=== PATIENT | female | born 1955 ===

== ENCOUNTER 2018-06-30 00:53 | Observation (INO) ==
--- NOTE | 2018-06-30 01:10 | Emergency Department Note ---
Disposition Clinical Impression: Urinary tract infection, Change in mental status Disposition: Admitted As Inpatient Condition: Good Time of Disposition: 02:57 General Adult HPI - General Chief complaint: ED General Medical Stated complaint: Lethargic onset this evening Time Seen by Provider: 06/30/18 00:54 Source: patient Mode of arrival: EMS Limitations: altered mental status Nursing Notes Reviewed: Yes Vital Signs Reviewed: Yes - History of Present Illness HPI Narrative: Patient arrives by EMS the complaint of being more lethargic than usual. Normally she is walking around and talking tonight she is not moving around much and is much more sleepy appearing. 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 Location: other (Generalized) Consistency: constant Improves with: nothing Worsens with: nothing - Related Data Home Medications Medication Instructions Recorded Confirmed Atorvastatin [Lipitor] 20 mg PO HS 06/30/16 06/30/18 Benztropine [Cogentin] 0.5 mg PO BID 06/30/16 06/30/18 Citalopram [CeleXA] 30 mg PO DAILY 06/30/16 06/30/18 Divalproex (12 HR) [Depakote (12 500 mg PO BID 06/30/16 06/30/18 HR)] Docusate Sodium [Stool Softener] 100 mg PO BID 06/30/16 06/30/18 Donepezil [Aricept] 10 mg PO HS 06/30/16 06/30/18 Haloperidol [Haldol] 2 mg PO HS 06/30/16 06/30/18 Lisinopril 2.5 mg PO DAILY 06/30/16 06/30/18 Memantine HCl [Namenda Xr] 28 mg PO HS 06/30/16 06/30/18 Omeprazole [PriLOSEC] 20 mg PO DAILY 06/30/16 06/30/18 metFORMIN [Glucophage] 1,000 mg PO BIDWM 06/30/16 06/30/18 risperiDONE [Risperdal] 1 mg PO DAILY 06/30/16 06/30/18 risperiDONE [Risperdal] 2 mg PO HS 06/30/16 06/30/18 Ferrous Sulfate [Iron] 325 mg PO DAILY 06/20/17 06/30/18 Acetaminophen [Tylenol] 650 mg PO Q4HR PRN 01/07/19 02/12/19 Ascorbic Acid [Vitamin C with [place] 500 mg PO BID 05/25/18 06/30/18 Hips] Aspirin [Lo-Dose Aspirin EC] 81 mg PO DAILY 05/25/18 06/30/18 Calcium Carbonate [Calcium] 600 mg PO BID 05/25/18 06/30/18 Carbamide Peroxide [Ear Drops] 3 drop OT DAILY PRN 05/25/18 06/30/18 Chloraseptic [place] [Chloraseptic] 1 spray MM Q2H PRN 05/25/18 06/30/18 Cholecalciferol (Vitamin D3) 1,000 unit PO DAILY 05/25/18 06/30/18 [Vitamin D3] Ibuprofen 400 mg PO Q4H PRN 05/25/18 06/30/18 Loperamide [Imodium] 2 mg PO PRN PRN 05/25/18 06/30/18 Magnesium Hydroxide [Milk of 30 ml PO PRN PRN 05/25/18 06/30/18 Magnesia] Polyethylene Glycol 3350 [MiraLAX] 17 gm PO DAILY 05/25/18 06/30/18 Promethazine [Phenergan] 25 mg PO Q6HR PRN 05/25/18 06/30/18 Allergies Allergy/AdvReac Type Severity Reaction Status Date / Time No Known Allergies Allergy Verified 06/30/16 13:41 Past Medical History - Past Medical History Medical history: Reports: dementia, diabetes, GERD, other (DD) Surgical history: Reports: hysterectomy Psychiatric history: Reports: bipolar, depression, schizophrenia - Social History Smoking Status: Never smoker Smokeless Tobacco Status: No Alcohol use: Reports: none Drug use: Reports: none Course Vital Signs Temperature 98.1 F 06/30/18 00:57 Pulse Rate 65 06/30/18 00:57 Respiratory Rate 16 06/30/18 00:57 Blood Pressure 116/59 06/30/18 00:57 O2 Sat by Pulse Oximetry 96 06/30/18 00:57 Temperature 97.7 F 06/30/18 06:57 Pulse Rate 75 06/30/18 06:57 Respiratory Rate 16 06/30/18 06:57 Blood Pressure 132/78 06/30/18 06:57 O2 Sat by Pulse Oximetry 93 06/30/18 06:57 Oxygen Delivery Oxygen Delivery Room Air Medical Decision Making - MDM Narrative Medical decision making narrative: I reviewed the patient's medication list I discussed the case with Dr. Bautista's graciously accepted admission - Lab Data Lab results reviewed: Yes I reviewed the patient's lab results. Result diagrams: 06/30/18 01:50 06/30/18 01:50 Lab Results 06/30/18 06/30/18 06/30/18 Range/Units 01:38 01:39 01:50 WBC 8.8 (4.3-11.1) K/mcL RBC 3.54 L (3.82-4.97) M/mcL Hgb 12.2 (11.5-15.4) g/dL Hct 36.7 (35.3-44.9) % MCV 103.7 H (83.0-100.0) fL MCH 34.5 H (28.0-33.3) pg MCHC 33.2 (31.6-35.5) g/dL RDW 14.2 (11.5-14.5) % Plt Count 203 (140-400) K/mcL MPV 10.7 (9.4-12.4) fL Immature Gran % 0.3 (0-4) % Seg Neutrophils % 37.8 % Lymphocytes % 53.5 % Monocytes % 7.0 % Eosinophils % 1.1 % Basophils % 0.3 % Neutrophils # 3.3 (1.6-8.9) K/mcL Lymphocytes # 4.7 H (0.6-4.6) K/mcL Monocytes # 0.6 (0.0-1.3) K/mcL Eosinophils # 0.1 (0.0-0.6) K/mcL Basophils # 0.0 (0.0-0.2) K/mcL Sodium (136-145) mEq/L Potassium (3.5-5.1) mEq/L Chloride (98-107) mEq/L Carbon Dioxide (23-29) mEq/L BUN (8-23) mg/dL Creatinine (0.60-1.20) mg/dL Est GFR ( Amer) (> 60) Est GFR (Non-Af Amer) (> 60) BUN/Creatinine Ratio (6-26) Glucose (70-105) mg/dL Calculated Osmolality (280-300) Lactic Acid (0.5-2.2) mmol/L Calcium (8.6-10.3) mg/dL Total Bilirubin (0.3-1.0) mg/dL AST (13-39) Units/L ALT (7-52) Units/L Alkaline Phosphatase (34-104) Units/L Serum Total Protein (6.4-8.9) g/dL Albumin (3.5-5.7) g/dL Globulin (2.4-3.5) g/dL Albumin/Globulin Ratio (1.1-2.2) Urine Color Yellow (Yellow) Urine Clarity Slightly Cloudy A (Clear) Urine pH 6.0 (5.0-8.0) pH Units Ur Specific [place] >= 1.030 H (1.010-1.025) Urine Protein Negative (Neg-Trace) mg/dL Urine Glucose (UA) Normal (Normal) mg/dL Urine Ketones 40 H (Negative) mg/dL Urine Blood Negative (Negative) Urine Nitrite Negative (Negative) Urine Bilirubin Negative (Negative) Urine Urobilinogen Normal (Normal) mg/dL Ur Leukocyte Esterase Small H (Negative) Urine Microscopic RBC 0-3 (0-3) per hpf Urine Microscopic WBC 5-15 H (0-3) per hpf Ur Squamous Epith Cells Few (None-Few) per lpf Urine Bacteria Moderate H (None-Few) per hpf Urine Mucus Few (Few) Ur Culture Indicated? YES A (NO) Urine Opiates Screen Negative (Csacpf=268) ng/mL Ur Oxycodone Screen Negative (Cutoff= 100) ng/mL Ur Barbiturates Screen Negative (Obqxzi=961) ng/mL Ur Phencyclidine Scrn Negative (Cutoff=25) ng/mL Ur Amphetamines Screen Negative (Yqsoxr=1894) ng/mL U Benzodiazepines Scrn Negative (Brucji=537) ng/mL Urine Cocaine Screen Negative (Cutoff= 300) ng/mL U Marijuana (THC) Screen Negative (Cutoff = 50) ng/mL Ur Drug Screen Interp See Below Ethyl Alcohol (Less than 10) mg/dL 06/30/18 06/30/18 Range/Units 01:50 01:50 WBC (4.3-11.1) K/mcL RBC (3.82-4.97) M/mcL Hgb (11.5-15.4) g/dL Hct (35.3-44.9) % MCV (83.0-100.0) fL MCH (28.0-33.3) pg MCHC (31.6-35.5) g/dL RDW (11.5-14.5) % Plt Count (140-400) K/mcL MPV (9.4-12.4) fL Immature Gran % (0-4) % Seg Neutrophils % % Lymphocytes % % Monocytes % % Eosinophils % % Basophils % % Neutrophils # (1.6-8.9) K/mcL Lymphocytes # (0.6-4.6) K/mcL Monocytes # (0.0-1.3) K/mcL Eosinophils # (0.0-0.6) K/mcL Basophils # (0.0-0.2) K/mcL Sodium 141 (136-145) mEq/L Potassium 3.5 (3.5-5.1) mEq/L Chloride 101 (98-107) mEq/L Carbon Dioxide 30 H (23-29) mEq/L BUN 14 (8-23) mg/dL Creatinine 0.61 (0.60-1.20) mg/dL Est GFR ( Amer) > 60 (> 60) Est GFR (Non-Af Amer) > 60 (> 60) BUN/Creatinine Ratio 23 (6-26) Glucose 88 (70-105) mg/dL Calculated Osmolality 292 (280-300) Lactic Acid 3.5 H (0.5-2.2) mmol/L Calcium 9.9 (8.6-10.3) mg/dL Total Bilirubin 0.4 (0.3-1.0) mg/dL AST 6 L (13-39) Units/L ALT 5 L (7-52) Units/L Alkaline Phosphatase 34 (34-104) Units/L Serum Total Protein 6.5 (6.4-8.9) g/dL Albumin 3.5 (3.5-5.7) g/dL Globulin 3.0 (2.4-3.5) g/dL Albumin/Globulin Ratio 1.2 (1.1-2.2) Urine Color (Yellow) Urine Clarity (Clear) Urine pH (5.0-8.0) pH Units Ur Specific [place] (1.010-1.025) Urine Protein (Neg-Trace) mg/dL Urine Glucose (UA) (Normal) mg/dL Urine Ketones (Negative) mg/dL Urine Blood (Negative) Urine Nitrite (Negative) Urine Bilirubin (Negative) Urine Urobilinogen (Normal) mg/dL Ur Leukocyte Esterase (Negative) Urine Microscopic RBC (0-3) per hpf Urine Microscopic WBC (0-3) per hpf Ur Squamous Epith Cells (None-Few) per lpf Urine Bacteria (None-Few) per hpf Urine Mucus (Few) Ur Culture Indicated? (NO) Urine Opiates Screen (Cqvqws=100) ng/mL Ur Oxycodone Screen (Cutoff= 100) ng/mL Ur Barbiturates Screen (Jzynnw=686) ng/mL Ur Phencyclidine Scrn (Cutoff=25) ng/mL Ur Amphetamines Screen (Asxije=6375) ng/mL U Benzodiazepines Scrn (Peupuq=054) ng/mL Urine Cocaine Screen (Cutoff= 300) ng/mL U Marijuana (THC) Screen (Cutoff = 50) ng/mL Ur Drug Screen Interp Ethyl Alcohol < 10 (Less than 10) mg/dL - Radiology Data Radiology results reviewed: Yes I reviewed the patient's radiology results.
[2018-06-30 02:13] LABS: Basophils % 0.3 %; Eosinophils # 0.1 K/mcL (0.0-0.6); Eosinophils % 1.1 %; Hematocrit 36.7 % (35.3-44.9); Hemoglobin 12.2 g/dL (11.5-15.4); Immature Granulocytes % 0.3 % (0-4); Lymphocytes # 4.7 K/mcL (0.6-4.6); Lymphocytes % 53.5 %; Mean Corpuscular HGB Conc 33.2 g/dL (31.6-35.5); Mean Corpuscular Hemoglobin 34.5 pg (28.0-33.3); Mean Corpuscular Volume 103.7 fL (83.0-100.0); Mean Platelet Volume 10.7 fL (9.4-12.4); Monocytes # 0.6 K/mcL (0.0-1.3); Neutrophils # 3.3 K/mcL (1.6-8.9); Platelet Count 203 K/mcL (140-400); Red Blood Count 3.54 M/mcL (3.82-4.97); Red Cell Distribution Width 14.2 % (11.5-14.5); Segmented Neutrophils % 37.8 %
[2018-06-30 02:16] LABS: Bilirubin,Urine Negative (Negative); Blood,Urine Negative (Negative); Color,Urine Yellow (Yellow); Glucose,Urine (UA) Normal (Normal); Ketones,Urine 40 mg/dL (Negative); Leukocyte Esterase,Urine Small (Negative); Nitrite,Urine Negative (Negative); Protein,Urine Negative (Neg-Trace); Specific Gravity,Urine >= 1.030 (1.010-1.025); Urobilinogen,Urine Normal (Normal)
[2018-06-30 02:20] LABS: Clarity,Urine Slightly Cloudy (Clear)
[2018-06-30 02:24] LABS: Alanine Aminotransferase 5 Units/L (7-52); Albumin 3.5 g/dL (3.5-5.7); Albumin/Globulin Ratio 1.2 (1.1-2.2); Alkaline Phosphatase 34 Units/L (34-104); Aspartate Amino Transferase 6 Units/L (13-39); BUN/Creatinine Ratio 23 (6-26); Bilirubin,Total 0.4 mg/dL (0.3-1.0); Blood Urea Nitrogen 14 mg/dL (8-23); Calcium 9.9 mg/dL (8.6-10.3); Carbon Dioxide 30 mEq/L (23-29); Chloride 101 mEq/L (98-107); Ethanol < 10 mg/dL (Less than 10); Glucose 88 mg/dL (70-105); Osmolality,Calculated 292 (280-300); Potassium 3.5 mEq/L (3.5-5.1); Sodium 141 mEq/L (136-145); Total Protein 6.5 g/dL (6.4-8.9); eGFR For Non-African Americans > 60 (> 60)
[2018-06-30 02:29] LABS: RBC,Urine 0-3 per hpf (0-3)
[2018-06-30 02:30] LABS: Bacteria,Urine Moderate per hpf (None-Few)
[2018-06-30 02:31] LABS: Mucus,Urine Few (Few); Squamous Epithelial Cell,Urine Few per lpf (None-Few)
[2018-06-30 02:33] LABS: Amphetamine Screen,Urine Negative ng/mL (Cutoff=1000); Barbiturate Screen,Urine Negative ng/mL (Cutoff=200); Benzodiazepines Screen,Urine Negative ng/mL (Cutoff=200); Cannabinoid Screen,Urine Negative ng/mL (Cutoff = 50); Cocaine Screen,Urine Negative ng/mL (Cutoff= 300); Opiate Screen,Urine Negative ng/mL (Cutoff=300); Phencyclidine Screen,Urine Negative ng/mL (Cutoff=25)
[2018-06-30] MEDS ORDERED: 0.9 % Sodium Chloride 1,000 ML IVC ONE ×2 (02:55→03:09)
[2018-06-30] MEDS ORDERED: cefTRIAXone 2,000 MG in 0.9 % Sodium Chloride Mini Bag 100 ML IVPB ONE (02:56)
[2018-06-30] MEDS ORDERED: Naloxone 0.4 MG/ML INJ IVP PRN (03:09)
[2018-06-30] MEDS ORDERED: MOM Conc 10 ML UD.LIQ PO PRN (03:09)
[2018-06-30] MEDS ORDERED: Chloraseptic Spray 177 ML BOTTLE MM PRN (03:09)
[2018-06-30] MEDS ORDERED: Acetaminophen 325 MG TABLET PO PRN (03:09)
[2018-06-30] MEDS ORDERED: cefTRIAXone 2,000 MG in Water for inj. (sterile) 20 ML 20 ML IVPB ONE (03:09)
[2018-06-30] MEDS: 0.9 % Sodium Chloride 1,000 ML IVC SCH ×2 (04:20→13:39)
[2018-06-30] MEDS: Cholecalciferol (D-3) 1,000 UNIT TABLET PO SCH (08:01)
[2018-06-30] MEDS: Ibuprofen 400 MG TABLET PO PRN ×2 (08:01→20:51)
[2018-06-30] MEDS: *HR* Metformin 500 MG TABLET PO SCH ×2 (08:02→15:37)
[2018-06-30] MEDS: Ascorbic Acid 500 MG TABLET PO SCH ×2 (08:02→20:50)
[2018-06-30] MEDS: Aspirin Enteric Coated 81 MG Tablet PO SCH (08:04)
[2018-06-30] MEDS: risperiDONE 1 MG TABLET PO SCH (08:04)
[2018-06-30] MEDS: Divalproex (12 HR) 250 MG TABLET PO SCH ×2 (10:02→20:50)
--- NOTE | 2018-06-30 14:21 | Internal Med History&Physical ---
Date of Encounter: 06/30/18 Time of Encounter: 14:00 Assessment and Plan (1) Urinary tract infection Current visit: Yes Status: Acute She was given Rocephin in emergency room. Urine culture has been ordered. Qualifiers: Urinary tract infection type: site unspecified Hematuria presence: without hematuria Qualified Code(s): N39.0 - Urinary tract infection, site not spec ified (2) Change in mental status Current visit: Yes Status: Acute Baseline unknown. She awakens and answers a few questions today. UTI treatment as per above. Reassess in a.m. Qualifiers: Altered mental status type: somnolence Qualified Code(s): R40.0 - Somnolence (3) Macrocytosis Current visit: Yes Status: Chronic Present on all labs since July 2016. B12 folate LFTs and TSH have been normal. Internal Medicine - H&P: HPI Chief complaint: Lethargy Admitted From: Emergency Dept Plans for Post Hospital Care: Home History of present illness: Ms. Sandhu is a 63 year old female who came to emergency room [facility] reported her to be more lethargic than usual. ER report states staff reported she was not walking around and she customarily did. She was evaluated in emergency room and was felt to have possible UTI. [facility] for ongoing care needs. She is lethargic and cannot give additional significant history. Past Med Surg Social Fam HX - Past Medical History Medical history: dementia, diabetes, GERD, other (DD) Additional medical history: sleep apnea. carotoid stenosis. constipation. Intellectual disability. insomnia. Auditory Hallucinations Psychiatric history: bipolar, depression, schizophrenia - Past Surgical History Surgical History: hysterectomy - Social History Smoking Status: Never smoker Smokeless Tobacco Status: No Alcohol use: none Drug use: none Internal Medicine - H&P: Meds Atorvastatin [Lipitor] 20 mg PO HS 06/30/16 [History] Benztropine [Cogentin] 0.5 mg PO BID 06/30/16 [History] Citalopram [CeleXA] 30 mg PO DAILY 06/30/16 [History] Divalproex (12 HR) [Depakote (12 HR)] 500 mg PO BID 06/30/16 [History] Docusate Sodium [Stool Softener] 100 mg PO BID 06/30/16 [History] Donepezil [Aricept] 10 mg PO HS 06/30/16 [History] Haloperidol [Haldol] 2 mg PO HS 06/30/16 [History] Lisinopril 2.5 mg PO DAILY 06/30/16 [History] Memantine HCl [Namenda Xr] 28 mg PO HS 06/30/16 [History] Omeprazole [PriLOSEC] 20 mg PO DAILY 06/30/16 [History] metFORMIN [Glucophage] 1,000 mg PO BIDWM 06/30/16 [History] risperiDONE [Risperdal] 1 mg PO DAILY 06/30/16 [History] risperiDONE [Risperdal] 2 mg PO HS 06/30/16 [History] Ferrous Sulfate [Iron] 325 mg PO DAILY 06/20/17 [History] Acetaminophen [Tylenol] 650 mg PO Q4HR PRN 05/25/18 [History] Ascorbic Acid [Vitamin C with [place] Hips] 500 mg PO BID 05/25/18 [History] Aspirin [Lo-Dose Aspirin EC] 81 mg PO DAILY 05/25/18 [History] Calcium Carbonate [Calcium] 600 mg PO BID 05/25/18 [History] Carbamide Peroxide [Ear Drops] 3 drop OT DAILY PRN 05/25/18 [History] Chloraseptic [place] [Chloraseptic] 1 spray MM Q2H PRN 05/25/18 [History] Cholecalciferol (Vitamin D3) [Vitamin D3] 1,000 unit PO DAILY 05/25/18 [History] Ibuprofen 400 mg PO Q4H PRN 05/25/18 [History] Loperamide [Imodium] 2 mg PO PRN PRN 05/25/18 [History] Magnesium Hydroxide [Milk of Magnesia] 30 ml PO PRN PRN 05/25/18 [History] Polyethylene Glycol 3350 [MiraLAX] 17 gm PO DAILY 05/25/18 [History] Promethazine [Phenergan] 25 mg PO Q6HR PRN 05/25/18 [History] Allergy/AdvReac Type Severity Reaction Status Date / Time No Known Allergies Allergy Verified 06/30/16 13:41 All Systems PM: A 10-system review of systems was performed and is negative for pertinent findings except as documented above in the HPI. Review of systems: Unobtainable from the patient - Constitutional Vitals: Temp Pulse Resp BP Pulse Ox 97.7 F 75 16 132/78 93 06/30/18 06:57 06/30/18 06:57 06/30/18 06:57 06/30/18 06:57 06/30/18 06:57 Exam: Gen.: She is a well-developed well-nourished female lying comfortably in bed and appears in no acute distress. She denies pain or dyspnea. HEENT: Head is atraumatic and normocephalic. Eyes: EOMI. There is no scleral icterus. Mouth: Mucosa is moist. Neck: Nontender. There is no thyromegaly or adenopathy noted. Heart: Regular without murmurs gallops or ectopics Lungs: No wheezes or crackles are heard. Abdomen: Soft and nontender. No masses or guarding are noted. Extremities: There is no cyanosis edema or clubbing noted. Dorsalis pedis and posttibial pulses are trace palpable bilaterally. Neurologic: Mental status: She is lethargic. She answers a few short answer questions with one-word answers but is not conversational. Cranial nerves: Smile is symmetric. Forehead wrinkles bilaterally. Tongue protrudes midline. EOMI. Motor: There is no pronator drift. She has some tremor at rest of her jaw. She has slight cogwheeling and rigidity on passive range of motion of her wrists and elbows. Cerebellar: Finger to nose is intact bilaterally. Skin: Warm and dry Internal Med - H&P Results - Labs CBC & Chem 7: 06/30/18 01:50 06/30/18 01:50 Labs: Short CBC 06/30/18 Range/Units 01:50 WBC 8.8 (4.3-11.1) K/mcL Hgb 12.2 (11.5-15.4) g/dL Hct 36.7 (35.3-44.9) % Plt Count 203 (140-400) K/mcL Neutrophils # 3.3 (1.6-8.9) K/mcL BMP 06/30/18 01:50 Sodium 141 Potassium 3.5 Chloride 101 Carbon Dioxide 30 H BUN 14 Creatinine 0.61 Glucose 88 Calcium 9.9 Liver Function 06/30/18 Range/Units 01:50 Total Bilirubin 0.4 (0.3-1.0) mg/dL AST 6 L (13-39) Units/L ALT 5 L (7-52) Units/L Alkaline Phosphatase 34 (34-104) Units/L Albumin 3.5 (3.5-5.7) g/dL Urine 06/30/18 Range/Units 01:39 Urine Color Yellow (Yellow) Urine Clarity Slightly Cloudy A (Clear) Urine pH 6.0 (5.0-8.0) pH Units Ur Specific [place] >= 1.030 H (1.010-1.025) Urine Protein Negative (Neg-Trace) mg/dL Urine Glucose (UA) Normal (Normal) mg/dL - Impressions ITS Impressions Chest X-Ray 06/30/18 01:12 IMPRESSION: Negative portable chest. D/ / Butch Pearson MD / Butch Pearson MD Interpreting Provider: Butch Pearson MD Head CT 06/30/18 01:12 IMPRESSION: No acute intracranial abnormality. D/ / Butch Pearson MD / Butch Pearson MD Interpreting Provider: Butch Pearson MD
[2018-06-30] MEDS: Lactobacillus 1 EACH CAP.SPRINK PO SCH (20:51)
[2018-06-30] MEDS ORDERED: cefTRIAXone 1,000 MG in Water for inj. (sterile) 20 ML 10 ML IVP SCH (21:00)
[2018-06-30] MEDS ORDERED: risperiDONE 1 MG TABLET PO SCH ×2 (21:00)
[2018-07-01 05:51] LABS: Basophils % 0.4 %; Eosinophils # 0.1 K/mcL (0.0-0.6); Eosinophils % 1.2 %; Hematocrit 31.7 % (35.3-44.9); Hemoglobin 10.6 g/dL (11.5-15.4); Immature Granulocytes % 0.2 % (0-4); Lymphocytes # 5.1 K/mcL (0.6-4.6); Mean Corpuscular HGB Conc 33.4 g/dL (31.6-35.5); Mean Corpuscular Hemoglobin 34.3 pg (28.0-33.3); Mean Corpuscular Volume 102.6 fL (83.0-100.0); Mean Platelet Volume 10.7 fL (9.4-12.4); Monocytes # 0.5 K/mcL (0.0-1.3); Monocytes % 5.8 %; Neutrophils # 2.7 K/mcL (1.6-8.9); Platelet Count 168 K/mcL (140-400); Red Blood Count 3.09 M/mcL (3.82-4.97); Red Cell Distribution Width 13.5 % (11.5-14.5); Segmented Neutrophils % 32.4 %
[2018-07-01] MEDS: Lactobacillus 1 EACH CAP.SPRINK PO SCH (09:49)
[2018-07-01] MEDS: Divalproex (12 HR) 250 MG TABLET PO SCH (09:50)
[2018-07-01] MEDS: Ascorbic Acid 500 MG TABLET PO SCH (09:52)
[2018-07-01] MEDS: Aspirin Enteric Coated 81 MG Tablet PO SCH (09:52)
[2018-07-01] MEDS: Cholecalciferol (D-3) 1,000 UNIT TABLET PO SCH (09:53)
[2018-07-01] MEDS: risperiDONE 1 MG TABLET PO SCH (09:54)
[2018-07-01] MEDS: *HR* Metformin 500 MG TABLET PO SCH (09:54)
--- NOTE | 2018-07-01 10:57 | Discharge Summary ---
Orders not resulted at time of discharge: Pending orders 06/30/18 01:39 Culture,Urine [RM] Stat 06/30/18 01:50 Culture,Blood [BC] Stat Date of Encounter: 07/01/18 Time of Encounter: 10:48 - Discharge Diagnosis (1) Urinary tract infection Priority: Primary Status: Acute Qualifiers: Urinary tract infection type: site unspecified Hematuria presence: without hematuria Qualified Code(s): N39.0 - Urinary tract infection, site not specified (2) Change in mental status Priority: Secondary Status: Acute Qualifiers: Altered mental status type: somnolence Qualified Code(s): R40.0 - Somnolence (3) Macrocytosis Priority: Secondary Status: Chronic Hospital course: Ms. Sandhu is a 63 year old female who came to emergency room after staff at the [facility] where she lives reported her to be more lethargic than usual. ER report states staff reported she was not walking around and she customarily did. She was evaluated in emergency room and was felt to have possible UTI. She was admitted to [facility] floor for ongoing care needs. Initial orders were written by the emergency room physician. I saw her on June 30 and performed a history and physical. She was started on Rocephin in emergency room for possible UTI. Urine culture report is pending at time of discharge. She will continue with empiric oral antibiotics and probiotic for 3 additional days at discharge. Her PCP can follow up on urine culture to ensure adequate coverage. The dose of Risperdal was decreased to 1 mg twice a day to lessen Parkinsonian symptoms and see if lethargy would improve. On July 01 her mental status appeared to be near baseline. She answered questions appropriately. She will remain on reduced dose Risperdal and be discharged back to the [facility] and follow with her PCP Dr. Tolliver. - Time Spent with Patient Total time spent providing and/or coordinating discharge services: - Discharge Medications Prescriptions: Cefuroxime PO [Ceftin] 500 mg PO Q12HR #6 tablet Lactobacillus [Culturelle] 1 each PO BID #6 [email or web address] Home Medications: Atorvastatin [Lipitor] 20 mg PO HS 06/30/16 [History] Benztropine [Cogentin] 0.5 mg PO BID 06/30/16 [History] Citalopram [CeleXA] 30 mg PO DAILY 06/30/16 [History] Divalproex (12 HR) [Depakote (12 HR)] 500 mg PO BID 06/30/16 [History] Docusate Sodium [Stool Softener] 100 mg PO BID 06/30/16 [History] Donepezil [Aricept] 10 mg PO HS 06/30/16 [History] Haloperidol [Haldol] 2 mg PO HS 06/30/16 [History] Lisinopril 2.5 mg PO DAILY 06/30/16 [History] Memantine HCl [Namenda Xr] 28 mg PO HS 06/30/16 [History] Omeprazole [PriLOSEC] 20 mg PO DAILY 06/30/16 [History] metFORMIN [Glucophage] 1,000 mg PO BIDWM 06/30/16 [History] risperiDONE [Risperdal] 1 mg PO DAILY 06/30/16 [History] Ferrous Sulfate [Iron] 325 mg PO DAILY 06/20/17 [History] Acetaminophen [Tylenol] 650 mg PO Q4HR PRN 05/25/18 [History] Ascorbic Acid [Vitamin C with [place] Hips] 500 mg PO BID 05/25/18 [History] Aspirin [Lo-Dose Aspirin EC] 81 mg PO DAILY 05/25/18 [History] Calcium Carbonate [Calcium] 600 mg PO BID 05/25/18 [History] Carbamide Peroxide [Ear Drops] 3 drop OT DAILY PRN 05/25/18 [History] Chloraseptic [place] [Chloraseptic] 1 spray MM Q2H PRN 05/25/18 [History] Cholecalciferol (Vitamin D3) [Vitamin D3] 1,000 unit PO DAILY 05/25/18 [History] Ibuprofen 400 mg PO Q4H PRN 05/25/18 [History] Loperamide [Imodium] 2 mg PO PRN PRN 05/25/18 [History] Magnesium Hydroxide [Milk of Magnesia] 30 ml PO PRN PRN 05/25/18 [History] Polyethylene Glycol 3350 [MiraLAX] 17 gm PO DAILY 05/25/18 [History] Promethazine [Phenergan] 25 mg PO Q6HR PRN 05/25/18 [History] Cefuroxime PO [Ceftin] 500 mg PO Q12HR #6 tablet 07/01/18 [Rx] Lactobacillus [Culturelle] 1 each PO BID #6 capmireya 07/01/18 [Rx] Allergies/Adverse Reactions: Allergy/AdvReac Type Severity Reaction Status Date / Time No Known Allergies Allergy Verified 06/30/16 13:41 Date of admission: 06/30/18 03:05 Primary care physician: Emily Tolliver - Constitutional Vitals: Temp Pulse Resp BP Pulse Ox 97.6 F 55 16 118/64 96 07/01/18 07:13 07/01/18 07:13 07/01/18 07:13 07/01/18 07:13 07/01/18 07:13 - Patient Status Disposition: Home, Self-Care Condition: Good - Discharge Instructions Follow Up With: Emily Tolliver MD [Primary Care Provider] - 1 week - Diet and Activity Activity: resume usual activities as tolerated Diet: advance to your usual diet
[2018-07-01 11:16] VITALS: BP 126/70
== END 2018-07-01 14:07 | disposition home or self-care (01) ==
LOC: EMEROOPIK 00:53 → INPPIK 00:53
PROVIDERS: ADMIT Internal Medicine; ATTEND Internal Medicine